=== PATIENT | male | born 1985 | race Caucasian/White ===

== ENCOUNTER 2018-01-16 00:25 | Outpatient (CLI) | payer OTHER, SELFPAY ==
[2018-01-16 09:40] LABS: Abs Immature Grans 0.01 k/cumm (0.0-0.09); Absolute Basophil Count 0.03 k/cumm (0.0-0.2); Absolute Lymphocyte Count 2.69 k/cumm (1.2-3.4); Absolute Monocyte Count 0.46 k/cumm (0.11-0.7); Absolute Neutrophil Count 3.78 k/cumm (1.2-6.7); Basophils % 0.4; Eosinophils % 1.4; HCT 39.7 % (40.0-50.0); HGB 14.1 g/dL (13.5-17.5); Immature Grans % 0.1; Mean Corp. HGB Concentration 35.5 g/dL (32.0-36.0); Mean Corpuscular Hemoglobin 30.9 pg (27.0-33.0); Mean Corpuscular Volume 87.1 fL (80-95); Mean Platelet Volume 9.6 fL (8.0-11.0); Monocytes % 6.5; Neutrophils % 53.6; Platelet Count 320 x1000/uL (130-400); RBC 4.56 m/cumm (4.50-6.00); White Blood Cell Count 7.07 k/cumm (4.4-10.8)
[2018-01-16 10:33] LABS: Cholesterol 207 mg/dL (50-200); HDL Cholesterol 55 mg/dL (40-60); LDL CHOLESTEROL 146 mg/dL (<100); Triglyceride 50 mg/dL (30-150)
== END 2018-01-16 00:45 ==
PROVIDERS: PCP Family Medicine; Visit Provider Family Medicine
DX: Z00.00 Encounter for general adult medical examination without abnormal findings (principal); K21.9 Gastro-esophageal reflux disease without esophagitis
CPT/HCPCS: 36415; 80061; 83721; 85025

== ENCOUNTER 2018-02-11 09:18 | Day surgery (SDC) | payer OTHER, SELFPAY ==
[2018-02-11] MEDS: Lactated Ringers 1,000 ML 30 ML IV (08:00)
--- NOTE | 2018-02-11 09:36 | STOM_PTH ---
PATIENT: Katlin Dodson LOC: [facility] U#:[id number] AGE/SX: 32/M ROOM: RE02/11/[address]: Hugo Rogel DO : 1985 BED: DIS: 02/11/2018 SPEC #: [id number] RECD: 02/11/18 12:42 STATUS: THERESA REQ #: [id number] MALISSA: 02/11/18 09:[address]: Hugo Rogel DEPT: Surgical Specimen RECD BY: Beatriz Pelletier ENTERED: 02/11/18 12:43 SP TYPE: STOMACH OTHR DR: Pedro Stephens Tissues: 1 - STOMACH BIOPSY Procedures: GROSS AND MICRO LEVEL 4 Comments: [id number]
[2018-02-11 10:10] VITALS: BP 116/77; PULSE 86; RESP 16; TEMP 36.7; O2SAT 96
[2018-02-11 10:16] VITALS: BP 129/79; PULSE 72; RESP 16; TEMP 36; O2SAT 98
--- NOTE | 2018-02-11 12:47 | W.PM.ENDDOP ---
Date of service: 02/11/18 Time of Service: 09:30 Endoscopy Report DATE OF PROCEDURE: 02/11/18 PRE-OP DIAGNOSIS: GERD POST-OP DIAGNOSIS: other PROCEDURE: Esophagogastroduodenoscopy with biopsies SURGEON: Hugo Rogel ANESTHESIA: MAC (Phani Mckeon CRNA; ASA 2 Mallampati class II) ESTIMATED BLOOD LOSS: 1 PATHOLOGY: other (Gastric antral biopsies) COMPLICATIONS: None DISPOSITION: same day INDICATIONS: 32-year-old male who has had history of GERD for a number of years for which she is treated with Nexium with good effect but has been unable to stop the Nexium. He has recently stopped drinking and noticed improvement in his symptoms, but remains leery of stopping his antacid medication. He notices that acidic food does cause symptoms also FINDINGS: Examining the upper gastrointestinal tract from the oropharynx to the third portion of the duodenum, patient was noted to have a small hiatal hernia, but no other gross pathology was identified. Biopsies were taken from the gastric antrum and submitted for pathology for microscopic review. PROCEDURE DESCRIPTION: The patient was brought to the procedure room. Monitoring for telemetry, end-tidal CO2, O2 saturation, blood pressure were applied. An appropriate timeout was taken reviewing the patient's identification, allergies, medications,and procedure. A bite was placed, and sedation was titrated for effect by the [employer] TECHNICIAN. An Olympus variable stiffness endoscope was advanced from the oropharynx to the third portion of the duodenum without difficulty. The scope was then withdrawn in circumferential manner from the duodenum back to the oropharynx. In performing withdrawal of the scope, the duodenum appeared grossly normal. The scope was withdrawn into the gastric antrum and retroflexed to examine the entire stomach, and no abnormalities of the gastric antrum, anterior, posterior surfaces of the stomach, lesser curvature, greater curvature.a hiatal hernia was noted at the gastric fundus. It was measured from 39 cm to 35 cm for 5 cm intrathoracic length. The scope was then withdrawn to the GE junction which I measured at 39 cm The Z line was at 34 cm and appeared regular. I withdrew the scope through the remainder of the esophagus all which appear grossly normal. Scope was then withdrawn terminating the upper endoscopy. Plan: We will await biopsy before making further recommendations. The patient may benefit from manometry and pH studies if he continues to have reflux.
--- NOTE | 2018-02-11 12:56 | W.PM.DSUDISC ---
Discharge Plan Disposition Patient Disposition: HOME Condition: Good Discharge Details Reason For Visit: GERD Attending Provider: Hugo Rogel Primary Care Provider: Pedro Stephens Home Meds and New Rx's Prescriptions: Continue escitalopram oxalate 10 mg tablet 10 mg PO DAILY RF: 0 omeprazole 20 mg capsule,delayed release(DR/EC) 20 mg PO DAILY RF: 0 Discharge Instructions Instructions: Upper Endoscopy (DC) Stand Alone Forms: DSU Post EGD Instructions, Destini Polanco (DSU) Activity:: Activity as Tolerated Diet:: As Tolerated Discharge Orders Discharge Orders: Discharge Order (Routine); Ordered 02/11/18 Ordered By: Hugo Rogel Discharge Data Discharge Date/Time-TO BE ENTERED AT DEPARTURE: 02/11/18 10:30 DS: Diagnosis Discharge Diagnosis (1) GERD (gastroesophageal reflux disease): Status: Chronic Asessment and Plan: Upper endoscopy performed: Endoscopy Report DATE OF PROCEDURE: 02/11/18 PRE-OP DIAGNOSIS: GERD POST-OP DIAGNOSIS: other PROCEDURE: Esophagogastroduodenoscopy with biopsies SURGEON: Hugo Rogel ANESTHESIA: MAC (Phani Mckeon CRNA; ASA 2 Mallampati class II) ESTIMATED BLOOD LOSS: 1 PATHOLOGY: other (Gastric antral biopsies) COMPLICATIONS: None DISPOSITION: same day INDICATIONS: 32-year-old male who has had history of GERD for a number of years for which she is treated with Nexium with good effect but has been unable to stop the Nexium. He has recently stopped drinking and noticed improvement in his symptoms, but remains leery of stopping his antacid medication. He notices that acidic food does cause symptoms also FINDINGS: Examining the upper gastrointestinal tract from the oropharynx to the third portion of the duodenum, patient was noted to have a small hiatal hernia, but no other gross pathology was identified. Biopsies were taken from the gastric antrum and submitted for pathology for microscopic review. PROCEDURE DESCRIPTION: The patient was brought to the procedure room. Monitoring for telemetry, end-tidal CO2, O2 saturation, blood pressure were applied. An appropriate timeout was taken reviewing the patient's identification, allergies, medications,and procedure. A bite was placed, and sedation was titrated for effect by the SPACE STUDIES FACULTY MEMBER. An Olympus variable stiffness endoscope was advanced from the oropharynx to the third portion of the duodenum without difficulty. The scope was then withdrawn in circumferential manner from the duodenum back to the oropharynx. In performing withdrawal of the scope, the duodenum appeared grossly normal. The scope was withdrawn into the gastric antrum and retroflexed to examine the entire stomach, and no abnormalities of the gastric antrum, anterior, posterior surfaces of the stomach, lesser curvature, greater curvature.a hiatal hernia was noted at the gastric fundus. It was measured from 39 cm to 35 cm for 5 cm intrathoracic length. The scope was then withdrawn to the GE junction which I measured at 39 cm The Z line was at 34 cm and appeared regular. I withdrew the scope through the remainder of the esophagus all which appear grossly normal. Scope was then withdrawn terminating the upper endoscopy. Plan: We will await biopsy before making further recommendations. The patient may benefit from manometry and pH studies if he continues to have reflux.
--- NOTE | 2018-02-11 12:59 | PDOC.DSDIS_ITS ---
Discharge Plan Disposition Patient Disposition: HOME Condition: Good Discharge Details Reason For Visit: GERD Attending Provider: Hugo Rogel Primary Care Provider: Pedro Stephens Home Meds and New Rx's Prescriptions: Continue escitalopram oxalate 10 mg tablet 10 mg PO DAILY RF: 0 omeprazole 20 mg capsule,delayed release(DR/EC) 20 mg PO DAILY RF: 0 Discharge Instructions Instructions: Upper Endoscopy (DC) Stand Alone Forms: DSU Post EGD Instructions, Destini Polanco (DSU) Activity:: Activity as Tolerated Diet:: As Tolerated Discharge Orders Discharge Orders: Discharge Order (Routine); Ordered 02/11/18 Ordered By: Hugo Rogel Discharge Data Discharge Date/Time-TO BE ENTERED AT DEPARTURE: 02/11/18 10:30 DS: Diagnosis Discharge Diagnosis (1) GERD (gastroesophageal reflux disease): Status: Chronic Asessment and Plan: Upper endoscopy performed: Endoscopy Report DATE OF PROCEDURE: 02/11/18 PRE-OP DIAGNOSIS: GERD POST-OP DIAGNOSIS: other PROCEDURE: Esophagogastroduodenoscopy with biopsies SURGEON: Hugo Rogel ANESTHESIA: MAC (Phani Mckeon CRNA; ASA 2 Mallampati class II) ESTIMATED BLOOD LOSS: 1 PATHOLOGY: other (Gastric antral biopsies) COMPLICATIONS: None DISPOSITION : same day INDICATIONS: 32-year-old male who has had history of GERD for a number of years for which she is treated with Nexium with good effect but has been unable to stop the Nexium. He has recently stopped drinking and noticed improvement in his symptoms, but remains leery of stopping his antacid medication. He notices that acidic food does cause symptoms also FINDINGS: Examining the upper gastrointestinal tract from the oropharynx to the third portion of the duodenum, patient was noted to have a small hiatal hernia, but no other gross pathology was identified. Biopsies were taken from the gastric antrum and submitted for pathology for microscopic review. PROCEDURE DESCRIPTION: The patient was brought to the procedure room. Monitoring for telemetry, end- tidal CO2, O2 saturation, blood pressure were applied. An appropriate timeout was taken reviewing the patient's identification, allergies, medications,and procedure. A bite was placed, and sedation was titrated for effect by the BRINE WELL OPERATOR. An Olympus variable stiffness endoscope was advanced from the oropharynx to the third portion of the duodenum without difficulty. The scope was then withdrawn in circumferential manner from the duodenum back to the oropharynx. In performing withdrawal of the scope, the duodenum appeared grossly normal. The scope was withdrawn into the gastric antrum and retroflexed to examine the entire stomach, and no abnormalities of the gastric antrum, anterior, posterior surfaces of the stomach, lesser curvature, greater curvature.a hiatal hernia was noted at the gastric fundus. It was measured from 39 cm to 35 cm for 5 cm intrathoracic length. The scope was then withdrawn to the GE junction which I measured at 39 cm The Z line was at 34 cm and appeared regular. I withdrew the scope through the remainder of the esophagus all which appear grossly normal. Scope was then withdrawn terminating the upper endoscopy. Plan: We will await biopsy before making further recommendations. The patient may benefit from manometry and pH studies if he continues to have reflux.
== END 2018-02-11 10:30 | disposition home or self-care (01) ==
PROVIDERS: PCP Family Medicine; Visit Provider Surgery
PROC: 0DJ68ZZ Inspection of Stomach, Via Natural or Artificial Opening Endoscopic (ICD-10-PCS; CPT 43235; principal; 2018-02-11 09:00)
DX: K21.9 Gastro-esophageal reflux disease without esophagitis (principal); K31.89 Other diseases of stomach and duodenum; K31.7 Polyp of stomach and duodenum; K44.9 Diaphragmatic hernia without obstruction or gangrene; F10.11 Alcohol abuse, in remission
CPT/HCPCS: 43239; 88305

== ENCOUNTER 2018-08-29 10:47 | Outpatient (CLI) | payer OTHER, SELFPAY ==
[2018-08-29 12:25] LABS: BUN 14 mg/dL (7-18); CREATININE 0.96 mg/dL (0.70-1.30); Calcium 9.4 mg/dL (8.5-10.1); Chloride 103 mmol/L (98-107); Glucose 99 mg/dL (70-100); Potassium 4.3 mmol/L (3.5-5.1); Sodium 141 mmol/L (136-145); TSH (W/Ref FT4) 1.02 uIU/mL (0.358-3.74)
== END 2018-08-29 11:07 ==
PROVIDERS: PCP Family Medicine; Visit Provider Family Medicine
DX: R03.0 Elevated blood-pressure reading, without diagnosis of hypertension (principal); R51 Headache
CPT/HCPCS: 36415; 80048; 84443

== ENCOUNTER 2019-04-14 18:51 | Outpatient (REF) | payer OTHER, SELFPAY ==
[2019-04-14 18:40] LABS: HCT 38.7 % (40.0-50.0); HGB 13.4 g/dL (13.5-17.5); Mean Corp. HGB Concentration 34.6 g/dL (32.0-36.0); Mean Corpuscular Volume 86.8 fL (80-95); Mean Platelet Volume 9.5 fL (8.0-11.0); Platelet Count 410 x1000/uL (130-400); RBC 4.46 m/cumm (4.50-6.00); RBC Distribution Width 12.1 % (11.8-14.1); White Blood Cell Count 8.39 k/cumm (4.4-10.8)
[2019-04-14 18:56] LABS: Ferritin 140 ng/mL (26-388)
== END 2019-04-14 19:11 ==
LOC: NCHCN 18:51
PROVIDERS: PCP Family Medicine; Visit Provider Family Medicine
DX: D64.9 Anemia, unspecified (principal); R53.83 Other fatigue
CPT/HCPCS: 85027; 82728

== ENCOUNTER 2019-04-20 20:12 | Outpatient (REF) | payer OTHER, SELFPAY ==
[2019-04-20 18:39] LABS: Iron 86 ug/dL (65-175); Total Iron Binding Capacity 296 ug/dL (250-450); Transferrin Sat 29 % (20-55)
[2019-04-20 19:08] LABS: Vitamin B12 645 pg/mL (193-986)
== END 2019-04-20 20:32 ==
LOC: NCHCN 20:12
PROVIDERS: PCP Family Medicine; Visit Provider Family Medicine
DX: D64.9 Anemia, unspecified (principal)
CPT/HCPCS: 82607; 83540; 83550

== ENCOUNTER 2020-04-16 23:55 | Outpatient (REF) | payer OTHER, SELFPAY ==
[2020-04-16 21:50] LABS: HCT 39.3 % (40.0-50.0); HGB 13.9 g/dL (13.5-17.5); MCH 31.1 pg (27.0-33.0); MCHC 35.4 % (32.0-36.0); MCV 87.9 fL (80-95); MPV 10.2 fL (8.0-11.0); Platelet Count 320 10^3/uL (130-400); RBC 4.47 10^6/uL (4.36-5.78); RDW 12.1 % (11.8-14.1); RDW-SD 38.8 fL; WBC 9.29 10^3/uL (4.4-10.8)
[2020-04-16 22:42] LABS: ALT 25 U/L (16-63); AST 18 U/L (15-37); Albumin 4.3 g/dL (3.4-5.0); Alkaline Phosphatase 91 U/L (46-116); Anion Gap 10.4 mmol/L (3-11); BUN 17 mg/dL (7-18); Bilirubin, Total 0.3 mg/dL (0.2-1.0); CO2 27.6 mmol/L (21.0-32.0); Calcium 9.5 mg/dL (8.5-10.1); Chloride 101 mmol/L (98-107); Glucose 91 mg/dL (74-106); Potassium 3.8 mmol/L (3.5-5.1); Sodium 139 mmol/L (136-145); TSH (W/Ref FT4) 0.86 uIU/mL (0.36-3.74); Total Protein 7.9 g/dL (6.4-8.2)
== END 2020-04-16 23:56 | disposition home or self-care (01) ==
LOC: NCHCN 23:55
PROVIDERS: PCP Family Medicine; Visit Provider Family Medicine
DX: R53.83 Other fatigue (principal); D64.9 Anemia, unspecified; F10.99 Alcohol use, unspecified with unspecified alcohol-induced disorder
CPT/HCPCS: 80053; 85027; 84443; 85025

== ENCOUNTER 2021-05-02 19:57 | Outpatient (REF) | payer OTHER, SELFPAY ==
[2021-05-05 15:34] LABS: Chlamydia Result Negative (Negative); GC Result Negative (Negative)
== END 2021-05-02 19:58 | disposition home or self-care (01) ==
LOC: NCHCN 19:57
PROVIDERS: PCP Family Medicine; Visit Provider Family Medicine
DX: Z11.3 Encounter for screening for infections with a predominantly sexual mode of transmission (principal)
CPT/HCPCS: 87491; 87591

== ENCOUNTER 2021-05-12 02:57 | Outpatient (CLI) | payer OTHER, SELFPAY ==
[2021-05-12 07:54] LABS: HGB 14.3 g/dL (13.5-17.5); MCHC 33.3 % (32.0-36.0); MCV 90.1 fL (80-95); MPV 9.7 fL (8.0-11.0); Platelet Count 273 10^3/uL (130-400); RBC 4.77 10^6/uL (4.36-5.78); RDW-SD 39.7 fL; WBC 5.99 10^3/uL (4.4-10.8)
[2021-05-12 08:44] LABS: Iron 114 ug/dL (65-175); Total Iron Binding Capacity 262 ug/dL (250-450); Transferrin Sat 44 % (20-55)
[2021-05-12 09:08] LABS: ALT 31 U/L (16-63); AST 21 U/L (15-37); Albumin 3.9 g/dL (3.4-5.0); Alkaline Phosphatase 78 U/L (46-116); Anion Gap 7.1 mmol/L (3-11); BUN 17 mg/dL (7-18); Bilirubin, Total 0.5 mg/dL (0.2-1.0); CO2 28.9 mmol/L (21.0-32.0); Calcium 8.8 mg/dL (8.5-10.1); Chloride 102 mmol/L (98-107); Glucose 97 mg/dL (74-106); Potassium 3.9 mmol/L (3.5-5.1); Sodium 138 mmol/L (136-145); Total Protein 7.1 g/dL (6.4-8.2); Vitamin B12 515 pg/mL (193-986)
[2021-05-12 18:29] LABS: Ferritin 61 ng/mL (22-322)
[2021-05-13 10:07] LABS: HIV-1/2 Ag & Ab Screen Negative (Negative)
[2021-05-13 10:47] LABS: Syphilis Serology (RPR) Negative (Negative)
[2021-05-20 10:27] LABS: Testosterone, Free 12.9 ng/dL (4.85-19.0); Testosterone, Total 391 ng/dL (240-950)
== END 2021-05-12 02:58 | disposition home or self-care (01) ==
LOC: LBO 02:57
PROVIDERS: PCP Family Medicine; Visit Provider Family Medicine
DX: D64.9 Anemia, unspecified (principal); Z00.00 Encounter for general adult medical examination without abnormal findings; Z11.4 Encounter for screening for human immunodeficiency virus [HIV]; Z11.3 Encounter for screening for infections with a predominantly sexual mode of transmission; F10.99 Alcohol use, unspecified with unspecified alcohol-induced disorder; N52.9 Male erectile dysfunction, unspecified
CPT/HCPCS: 36415; 80053; 84402; 84403; 85027; 87389; 82607; 82728; 83540; 83550; 86592

== ENCOUNTER 2021-07-14 13:57 | Outpatient (REF) | payer OTHER, SELFPAY ==
[2021-07-14 20:36] LABS: Calculated LDL 145 mg/dL (<100); Cholesterol 226 mg/dL (<200); HDL Cholesterol 72 mg/dL (40-60); Triglyceride 46 mg/dL (<150)
== END 2021-07-14 13:58 | disposition home or self-care (01) ==
LOC: NCHCN 13:57
PROVIDERS: PCP Family Medicine; Visit Provider Family Medicine
DX: E78.5 Hyperlipidemia, unspecified (principal)
CPT/HCPCS: 80061

== ENCOUNTER 2021-08-28 18:41 | Outpatient (REF) | payer OTHER, SELFPAY | END 2021-08-28 18:42 | disposition home or self-care (01) | LOC: NCHCN 18:41 | PROVIDERS: PCP Family Medicine; Visit Provider Nurse Practitioner Family | DX: N39.0 Urinary tract infection, site not specified (principal) | CPT/HCPCS: 87086 ==

== ENCOUNTER 2021-09-16 18:50 | Outpatient (REF) | payer OTHER, SELFPAY ==
[2021-09-16 19:54] LABS: Bilirubin Negative (Negative); Blood Negative (Negative); Clarity Sl Cloudy (Clear); Glucose Negative (Negative); Ketones Negative (Negative); Leukocyte Esterase Small (Negative); Nitrite Negative (Negative); Specific Gravity 1.025 (1.005-1.025); Urobilinogen 0.2 EU/dL (Up TO 0.2)
[2021-09-16 20:07] LABS: Bacteria Rare HPF (Negative); C & S Indicated? Yes; Crystals Negative HPF (Negative); Epithelial Cells Negative HPF (Negative); Mucus Negative (Negative); RBC 0-2 HPF (0-2); WBC >50 HPF (0-5)
[2021-09-18 15:04] LABS: Chlamydia Result Negative (Negative); GC Result Negative (Negative)
[2021-09-20 08:23] LABS: Mycoplasma genitalium Result Positive (Negative); Specimen Source URINE
== END 2021-09-16 18:51 | disposition home or self-care (01) ==
LOC: NCHCN 18:50
PROVIDERS: PCP Family Medicine; Visit Provider Nurse Practitioner Family
DX: N34.2 Other urethritis (principal)
CPT/HCPCS: 87491; 87563; 87591; 81003; 81015; 87086

== ENCOUNTER 2023-03-17 20:11 | Outpatient (REF) | payer OTHER, SELFPAY ==
[2023-03-17 20:42] LABS: Source Nasal/Nares
[2023-03-17 21:25] LABS: COVID-19 PCR Negative (Negative)
== END 2023-03-17 20:12 | disposition home or self-care (01) ==
LOC: LBN 20:11
PROVIDERS: PCP Family Medicine; Visit Provider Physician Assistant Medical
DX: B34.9 Viral infection, unspecified (principal); R07.0 Pain in throat; Z20.822 Contact with and (suspected) exposure to COVID-19
CPT/HCPCS: 87635; 87070

== ENCOUNTER 2024-05-23 01:03 | Outpatient (CLI) | payer BC, SELFPAY ==
--- NOTE | 2024-05-23 14:30 | DI.US_ITS ---
APPROVED REPORT EXAM: Comprehensive 2D, Doppler, and color-flow Echocardiogram Patient Location: Out-Patient Complaint Evaluation Officer: Greyson Menjivar RDCS (AE) Indications: Family history of sudden cardiac , pt has peaked T waves on EKG, feeling winded, ? hypertrophic cardiac disease Other Information Study Quality: Good Conclusion Normal left ventricular wall thickness and chamber size. Ejection fraction is 65%. Wall motion is n ormal Normal right ventricular size and function Both atria are normal in size There is no structural or hemodynamically significant valvular disease Estimated right ventricular systolic pressure is normal at 20 mmHg Wall motion Left Ventricle The left ventricle is normal size. Left ventricular systolic function is normal. The left ventricular ejection fraction is within the normal range. There is normal left ventricular wall thickness. There is normal LV segmental wall motion. The left ventricular diastolic function is normal. There is no v entricular septal defect visualized. LVEF is 65%. Right Ventricle The right ventricle is normal size. The right ventricular systolic function is normal. Atria The left atrium size is normal. The right atrium size is normal. Aortic Valve The aortic valve is normal in structure. Aortic valve is trileaflet. There is no aortic valvular sten osis. No aortic regurgitation is present. Mitral Valve The mitral valve is normal in structure. No evidence of mitral valve stenosis. There is no mitral reuben ve regurgitation noted. Tricuspid Valve The tricuspid valve is normal in structure. There is no tricuspid valve stenosis. Trace tricuspid reg urgitation. The RVSP is 19.8 mmHg. Pulmonic Valve The pulmonary valve is normal in structure. There is no pulmonic valvular stenosis. There is trivial pulmonic valvular regurgitation. Great Vessels The aortic root is normal in size. The ascending aorta is normal in size. Aortic arch is normal in ca liber. IVC is normal in size and collapses >50% with inspiration. Pericardium There is no pericardial effusion. 2D Dimensions IVSD d PLAX 0.78 cm M: 0.6-1.2 Ao Root d 2.88 cm M: 3.1 - 3.7 LVPW d PLAX 0.80 cm M: 0.6 - 1.2 Ao Asc Diam d 2.95 cm M: 2.6 - 3.4 LVID d PLAX 4.46 cm M: 4.2 - 5.8 LVDs 2.92 cm M: 2.5 - 4.0 LV EF Teichholz 63.8 % FS 34.55 % LV EDV (Teich) 90.4 mL LV ESV (Teich) 32.7 mL Stroke Vol Index (Teich) 29.59 M-Mode TAPSE 2.12 cm (M/F) >1.7 Auto EF LV EDV A4C 104.1 mL LV EDV A2C 93.2 mL LV EDV BP 98.0 mL LV ESV A4C 35.1 mL LV ESV A2C 34.9 mL LV ESV BP 35.0 mL LVEF(%) A4C 66.3 % LVEF(%) A2C 62.5 % LVEF(%) BP 64.3 % LV SV A4C 69.0 ml LV SV A2C 58.3 ml LV SV BP 63.1 ml LV CO A4C 4.7 L/min LV CO A2C 4.3 L/min LV CO BP 4.5 L/min HR A4C 67.52 BPM HR A2C 73.33 BPM LV EDV Index (BP) LA Volume LA Length A4C 4.2 cm LA Length A2C 3.8 cm LA Area A4C s 8.72 cm2 LA Area A2C s 10.73 cm2 LA Vol A4C A-L 15.36 mL LA Vol A2C A-L 25.69 mL LA Vol Biplane A-L 20.9 mL LA Vol/BSA A4C A-L LA Vol/BSA A2C A-L LA Vol/BSA BP A-L 10.7 mL/m2 LA Vol A4C MOD 14.2 mL LA Vol A2C MOD 24.0 mL LA Vol BP MOD 19.2 mL RA Volume RA Area A4C 9.3 cm2 RA ESV A4C (A-L) 20.1mL RA Vol/BSA A4C A-L RA Length A4C 3.6 cm RA ESV A4C (MOD) 20.0mL LV Diastology MV E' medial 0.134 (>0.07 m/s) MV E Vmax 0.82 (0.4-1.3 m/s) MV E/E' MED 6.16 (<14) MV A Vmax 0.55 (0.4-1.3 m/s) MV E' lateral 0.221 (>0.1 m/s) E/A Ratio 1.5 MV E/E' LAT 3.72 (<14) MV E' Average 0.177 m/s MV E/E'(average) 4.64 Aortic Valve AoV Vmax 1.84 m/s LVOT Vmax 1.42 m/s AoV Peak Grad 13.5 mmHg LVOT Peak Grad 8.0 mmHg AoV Area (Vmax) 1.94 cm2 LVOT VTI 0.310 m AoV VTI 0.378 m LVOT Mean Grad 5.3 mmHg AoV Mean Zackery. 1.30 m/s LVOT SV 77.70 mL AoV Mean Grad 7.7 mmHg LVOT Diam s 1.75 cm AoV Area (VTI) 2.06 cm2 AV Regurg Peak Gr. 13.48 mmHg Velocity Ratio 0.77 Mitral Valve MV DT 191 (160-240 msec) MV Vmax TIPS 0.80 m/s MV Mean Grad 1.2 (<2mmHg) MV VTI 0.225 m Pulmonary Valve PV Vmax 1.45 (0.5-1.5 m/s) RVOT Vmax 1.16 m/s PV Peak Grad 8.4 mmHg RVOT Peak Gr. 5.3 mmHg PV Mean Zackery 1.01 m/s RVOT VTI 0.234 m PV Mean Grad 4.7 mmHg RVOT Mean Gr. 2.6 mmHg ID ED Velocity 0.97 m/s ID ED Grad 3.7 mmHg Tricuspid Valve RA Pressure 3.00 mmHg TR Vmax 2.05 m/s TR Peak Grad 16.7 mmHg RVSP (TR) 19.8 mmHg
== END 2024-05-23 01:23 ==
PROVIDERS: PCP Student in an Organized Health Care Education/Training Program; Visit Provider Internal Medicine Cardiovascular Disease
DX: Z82.41 Family history of sudden cardiac death (principal); Z13.6 Encounter for screening for cardiovascular disorders
CPT/HCPCS: 93306

== ENCOUNTER 2024-06-09 17:10 | Outpatient (REF) | payer BC, SELFPAY ==
[2024-06-09 16:06] LABS: Calculated LDL 135 mg/dL (<100); Cholesterol 228 mg/dL (<200); HDL Cholesterol 72 mg/dL (>or=40); Triglyceride 108 mg/dL (<150)
== END 2024-06-09 17:11 | disposition home or self-care (01) ==
LOC: NCHCN 17:10
PROVIDERS: PCP Student in an Organized Health Care Education/Training Program; Visit Provider Student in an Organized Health Care Education/Training Program
DX: E78.5 Hyperlipidemia, unspecified (principal)
CPT/HCPCS: 80061

== ENCOUNTER 2024-06-30 14:51 | Outpatient (RCR) | payer BC, SELFPAY ==
--- NOTE | 2024-07-06 08:54 | W.HOLTRPT ---
Date of service: 07/06/24 Time of Service: 08:54 Holter Monitor Report Referring Provider:: Prateek Llamas Indications:: Palpitations Holter Monitor Note: This is a 48-hour Holter monitor. Rhythm throughout was sinus with an average heart rate of 80. Minimum was 47, maximum 126. There were no ventricular dysrhythmias. A total of 8 premature atrial contractions were recorded. There were no patient symptoms
== END 2024-07-12 23:59 | disposition home or self-care (01) ==
LOC: CARDOPNVT 14:51
PROVIDERS: PCP Student in an Organized Health Care Education/Training Program; Visit Provider Internal Medicine Cardiovascular Disease
DX: R00.2 Palpitations (principal)
CPT/HCPCS: 93225; 93226

== ENCOUNTER 2024-07-07 15:52 | Outpatient (REF) | payer BC, OTHER, SELFPAY ==
[2024-07-07 21:14] LABS: ALT 32 U/L (16-63); AST 20 U/L (15-37); Albumin 3.9 g/dL (3.4-5.0); Alkaline Phosphatase 102 U/L (46-116); Anion Gap 6.6 mmol/L (3-11); BUN 20 mg/dL (7-18); Bilirubin, Total 0.3 mg/dL (0.2-1.0); CO2 30.4 mmol/L (21.0-32.0); CREATININE 1.4 mg/dL (0.70-1.30); Calcium 9.7 mg/dL (8.5-10.1); Chloride 105 mmol/L (98-107); Glucose 96 mg/dL (74-106); Magnesium 2.1 mg/dL (1.8-2.4); Potassium 3.9 mmol/L (3.5-5.1); Sodium 142 mmol/L (136-145); Total Protein 7.6 g/dL (6.4-8.2)
== END 2024-07-07 15:53 | disposition home or self-care (01) ==
LOC: NCHCN 15:52
PROVIDERS: PCP Student in an Organized Health Care Education/Training Program; Visit Provider Student in an Organized Health Care Education/Training Program
DX: E78.5 Hyperlipidemia, unspecified (principal); R00.2 Palpitations
CPT/HCPCS: 80053; 83735

== ENCOUNTER 2024-10-10 16:24 | Outpatient (REF) | payer BC, SELFPAY ==
[2024-10-10 20:41] LABS: Anion Gap 9.4 mmol/L (3-11); BUN 18 mg/dL (7-18); CO2 28.6 mmol/L (21.0-32.0); Calcium 9.7 mg/dL (8.5-10.1); Chloride 101 mmol/L (98-107); Estimated GFR 112.81 (mL/min/1.73m2); Glucose 95 mg/dL (74-106); Potassium 4.0 mmol/L (3.5-5.1); Sodium 139 mmol/L (136-145)
[2024-10-10 21:06] LABS: Glucose Negative (Negative)
[2024-10-10 21:12] LABS: COMMENT (LAB VIEW ONLY) 49.65 mg/dL; Microalb ug/mg Crea 6.6 ug/mg Cr
== END 2024-10-10 16:25 | disposition home or self-care (01) ==
LOC: NCHCN 16:24
PROVIDERS: PCP Student in an Organized Health Care Education/Training Program; Visit Provider Student in an Organized Health Care Education/Training Program
DX: R79.89 Other specified abnormal findings of blood chemistry (principal)
CPT/HCPCS: 80048; 81003; 82043; 82570